=== PATIENT | female | born 1995 | race Caucasian/White ===

== ENCOUNTER 2018-05-02 19:46 | Emergency (ER) | payer BC ==
[2018-05-02 19:49] VITALS: BP 141/88
--- NOTE | 2018-05-02 19:49 | ED.ADGEN ---
Adult General Chief Complaint Chief Complaint "..I was putting the spring back on my sons rocking horse ... and the screw - flew out. and the spring... and hit me in my Rt. eye" HPI HPI Patient is a 22 year old female who presents with above hx and complaints contusion and Rt eye pain after stuck in eye with rocking horse spring. Pt. Visual acuity is equal to Lt eye 20/30. Rt lid is swollen and has abrasion. Rt. eye has abrasion of cornea and sclera area at 0300 area. No consensual photophobia. Iris appears intact. There is a little limbus injection at 3:00. Extraocular muscles on her muscles appear intact and range of motion. Patient denies any underlying health issues. Patient unsure of her last tetanus. Patient previously instructed wear glasses for astigmatism. Fluorescein exam showed no obvious perforation, but obvious abrasion at 0300. Review of Systems Review of Systems Constitutional: Denies fever or chills [] Eyes: Denies change in visual acuity, redness, or eye pain -[]except right thigh as per history of present illness HENT: Denies nasal congestion or sore throat [] Respiratory: Denies cough or shortness of breath [] Cardiovascular: No additional information not addressed in HPI [] GI: Denies abdominal pain, nausea, vomiting, bloody stools or diarrhea [] : Denies dysuria or hematuria [] Musculoskeletal: Denies back pain or joint pain [] Integument: Denies rash or skin lesions [] Neurologic: Denies headache, focal weakness or sensory changes [] Endocrine: Denies polyuria or polydipsia [] All other systems were reviewed and found to be within normal limits, except as documented in this note. Family History Family History Noncontributory Current Medications Current Medications Current Medications Medications (Trade) Dose Ordered Sig/Bonnie Start Time Stop Time Status Last Admin Dose Admin Ciprofloxacin 1 drop Q4HRS 05/03/18 00:00 05/03/18 00:00 DC 05/02/18 21:01 1 DROP Cyclopentolate HCl (Cyclogyl) 1 drop 1X ONCE 05/02/18 20:30 05/02/18 20:31 DC 05/02/18 21:00 1 DROP Cyclosporine (Restasis) 1 drop BID 05/02/18 21:00 6/24/18 21:14 DC Erythromycin (Romycin) 0.25 inch 1X ONCE 05/02/18 20:30 05/02/18 20:31 DC Fluorescein Sodium (Ful-Erika 1mg) 1 strip 1X ONCE 05/02/18 20:00 05/02/18 20:02 DC 05/02/18 20:01 1 STRIP Ondansetron HCl (Zofran Odt) 8 mg 1X ONCE 05/02/18 21:30 05/02/18 21:30 DC Oxycodone/ Acetaminophen (Percocet 10/325) 1 tab 1X ONCE 05/02/18 20:00 05/02/18 20:02 DC 05/02/18 20:04 1 TAB Tetanus/ Diphtheria Toxoids Adsorbed (Tenivac Vial) 0.5 ml ONCE ONCE 05/02/18 20:00 05/02/18 20:02 DC Tetracaine HCl (Tetracaine) 1 drop 1X ONCE 05/02/18 20:00 05/02/18 20:02 DC 05/02/18 20:01 1 DROP Allergies Allergies Allergies Coded Allergies Type Severity Reaction Last Updated Verified No Known Drug Allergies 05/02/18 No Physical Exam Physical Exam Constitutional: Well developed, well nourished, moderately acute distress, non- toxic appearance. [] HENT: Normocephalic, atraumatic, bilateral external ears normal, oropharynx moist, no oral exudates, nose normal. [] Eyes: PERRLA, EOMI, conjunctiva mild injection and abrasion as per history of present illness, no discharge. [] Neck: Normal range of motion, no tenderness, supple, no stridor. [] Cardiovascular:Heart rate regular rhythm, no murmur [] Lungs & Thorax: Bilateral breath sounds clear to auscultation [] Abdomen: Bowel sounds normal, soft, no tenderness, no masses, no pulsatile masses. [] Skin: Warm, dry, no erythema, no rash. [] Back: No tenderness, no CVA tenderness. [] Extremities: No tenderness, no cyanosis, no clubbing, ROM intact, no edema. [] Neurologic: Alert and oriented X 3, normal motor function, normal sensory function, no focal deficits noted. [] Psychologic: Affect normal, judgement normal, mood normal. [] Current Patient Data Vital Signs Vital Signs Date Time Temp Pulse Resp B/P (MAP) Pulse Ox O2 Delivery O2 Flow Rate FiO2 05/02/18 19:49 97.9 129 18 96 Room Air EKG EKG [] Radiology/Procedures Radiology/Procedures [] Course & Med Decision Making Course & Med Decision Making Pertinent Labs and Imaging studies reviewed. (See chart for details). Do not rub eye. Sleep with head elevated. Use Cipro eye drops two to Rt eye every 4 hrs. . Take tylenol for pain, marked pain take her cassette up to 4 times a day. Must follow-up with ophthalmology. Return if any concerns. [] Final Impression Final Impression 1. Rt.Eye[] Lid, sclera and cornea abrasion 2. Rt. Eye contusion Dragon Disclaimer Dragon Disclaimer This electronic medical record was generated, in whole or in part, using a voice recognition dictation system. ROSANA FARNSWORTH MD May 02, 2018 19:49
[2018-05-02] MEDS ORDERED: TETRACAINE 0.5% OPHTH SOLUTION 4ML BOTTLE. OD ONE (20:00)
[2018-05-02] MEDS ORDERED: FLUORESCEIN 1MG EYE STRIP. OD ONE (20:00)
[2018-05-02] MEDS ORDERED: oxyCODONE/APAP 10/325 1 TAB TABLET PO ONE (20:00)
[2018-05-02] MEDS ORDERED: TETANUS AND DIPHTHERIA TOX/PF 0.5 ML VIAL. VAX IM ONE (20:00)
[2018-05-02] MEDS ORDERED: CIPROFLOXACIN 0.3% OPHTH SOLUTION 2.5ML BOTTLE. ONE ×2 (20:19→20:44)
[2018-05-02] MEDS ORDERED: CYCLOPENTOLATE 1% OPTH SOLUTION 2ML BOTTLE. ONE (20:20)
[2018-05-02] MEDS ORDERED: ERYTHROMYCIN 0.5% OPHTH OINTMENT 1GM TUBE. OD ONE (20:30)
[2018-05-02] MEDS ORDERED: CYCLOPENTOLATE 1% OPTH SOLUTION 2ML BOTTLE. OD ONE (20:30)
[2018-05-02] MEDS ORDERED: OXYC-328 PO (20:52)
[2018-05-02] MEDS ORDERED: cycloSPORINE 0.05% OPTH 1 DROP DROPERETTE OD SCH (21:00)
[2018-05-02] MEDS ORDERED: ONDANSETRON ODT 4 MG TAB.RAPDIS PO ONE (21:30)
[2018-05-03] MEDS ORDERED: CIPROFLOXACIN 0.3% OPHTH SOLUTION 2.5ML BOTTLE. OD SCH
== END 2018-05-02 21:04 | disposition home or self-care (01) ==
LOC: ER 19:46
DX: S00.11XA Contusion of right eyelid and periocular area, initial encounter (principal); W22.8XXA Striking against or struck by other objects, initial encounter; Y93.89 Activity, other specified; Y99.8 Other external cause status; Y92.89 Other specified places as the place of occurrence of the external cause
CPT/HCPCS: 99284